=== PATIENT | male | born 1965 | race Hispanic/Latino ===

== ENCOUNTER 2018-09-04 06:26 | Day surgery (SDC) | payer OTHER ==
[2018-08-30 13:47] VITALS: BMI 24.1
[2018-09-04 07:03] LABS: BASO # 0.1 K/uL (0.0-0.2); BASO % 0.7 % (0.0-2.0); EOS # 0.1 K/uL (0.0-0.7); HEMOGLOBIN 14.7 g/dL (12.0-18.0); LYMPH # 2.3 K/uL (1.0-4.3); LYMPH % 29.6 % (20.0-40.0); MEAN CELL VOLUME 100.2 fl (80.0-94.0); MEAN CORPUSCULAR HEMOGLOBIN 34.7 pg (27.0-31.0); MEAN CORPUSCULAR HGB CONC 34.6 g/dL (33.0-37.0); MEAN PLATELET VOLUME 7.5 fl (7.2-11.7); MONO # 0.6 K/uL (0.0-0.8); MONO % 7.5 % (0.0-10.0); NEUT # 4.7 K/uL (1.8-7.0); NEUT % 61.2 % (50.0-75.0); NRBC % 0.1 % (0.0-0.0); RBC 4.24 Mil/uL (4.40-5.90); RED CELL DISTRIBUTION WIDTH 13.4 % (11.5-14.5); WHITE BLOOD COUNT 7.7 K/uL (4.8-10.8)
--- NOTE | 2018-09-04 07:11 | CP.PCM.HP ---
History of Present Illness - History of Present Illness History of Present Illness: 52 y/o male with PMH of HTN, GERD, and carpal tunnel was seen and evaluated in Same day Surgery for elective Right Total Hip Replacement Surgery today with Dr. Ovalles. Patient reports his hip pain has been present for the past 1 month, it is exacerbated by walking and activity and alleviated by rest. Patient denies any trauma or injury. Patient failed out-patient therapy, and now requires a total hip replacement. Patient reports he does not workout, however, states he walks daily. Patient lives in a home with stairs. Patient does not use a cane or walker for ambulation. Patient denies shortness of breath at rest or with exertion. Patient denies fever, nausea, vomiting, shortness of breath, abdominal pain, dysuria, polyuria or chest pain at this time. Patient's NPO status was confirmed. Patient's present at bedside. Allergies: Penicillins Medication: Amlodipine, Losartan, Nexium, HCTZ PMH: as mentioned PSH: Left Knee Surgery [address] Ovalles, lump removal from vocal chords many years ago Social: admits to 1 ppd and wine daily, denies illicit drug use METs score atleast 4 Vitals: Temp 97.8, BP 145/83, O2 98%, PMD: Dr. Frazier Patient medical and cardiac clearance noted in chart EKG- NSR, no evidence of acute ischemia or infarct CXR- no acute pathology All labs seen in chart, within normal limits Present on Admission - Present on Admission Any Indicators Present on Admission: No Review of Systems - Review of Systems All systems: reviewed and no additional remarkable complaints except Review of Systems: as per HPI Past Patient History - Past Medical History & Family History Past Medical History?: Yes - CARDIAC Hx Cardiac Disorders: Yes Hx Hypertension: Yes - PULMONARY Hx Respiratory Disorders: Yes - NEUROLOGICAL Hx Neurological Disorder: Yes - HEENT Hx HEENT Problems: Yes Other/Comment: Astigmatism - RENAL Hx Chronic Kidney Disease: No - ENDOCRINE/METABOLIC Hx Endocrine Disorders: No - HEMATOLOGICAL/ONCOLOGICAL Hx Blood Disorders: No - INTEGUMENTARY Hx Dermatological Problems: No - MUSCULOSKELETAL/RHEUMATOLOGICAL Hx Musculoskeletal Disorders: Yes Hx Arthritis: Yes - GASTROINTESTINAL Hx Gastrointestinal Disorders: No - GENITOURINARY/GYNECOLOGICAL Hx Genitourinary Disorders: No - PSYCHIATRIC Hx Psychophysiologic Disorder: No - SURGICAL HISTORY Hx Surgeries: Yes Hx Arthroscopy: Yes (Left knee 2013) Other/Comment: Lump removed from vocal cord 30 years ago - ANESTHESIA Hx Anesthesia: Yes Hx Anesthesia Reactions: No Hx Malignant Hyperthermia: No Has any member of the family had a problem w/ anesthesia?: No Meds Allergies/Adverse Reactions: Allergies Allergy/AdvReac Type Severity Reaction Status Date / Time Penicillins Allergy Severe ANAPHYLAXIS Verified 09/04/18 06:41 Physical Exam - Constitutional Appears: Well, Non-toxic, No Acute Distress - Head Exam Head Exam: ATRAUMATIC, NORMOCEPHALIC - Eye Exam Eye Exam: Normal appearance, PERRL - ENT Exam ENT Exam: Mucous Membranes Moist, Normal Exam - Respiratory Exam Respiratory Exam: Clear to Auscultation Bilateral, NORMAL BREATHING PATTERN. absent: Rales, Rhonchi, Wheezes - Cardiovascular Exam Cardiovascular Exam: REGULAR RHYTHM, +S1, +S2 - GI/Abdominal Exam GI & Abdominal Exam: Normal Bowel Sounds, Soft. absent: Distended, Firm, Guarding - Extremities Exam Additional comments: Right hip painful range of motion - Back Exam Back exam: absent: CVA tenderness (L), CVA tenderness (R) - Neurological Exam Neurological exam: Alert, Oriented x3 - Psychiatric Exam Psychiatric exam: Normal Affect, Normal Mood - Skin Skin Exam: Normal Color Results - Labs Result Diagrams: 09/04/18 06:35 Labs: Laboratory Results - last 24 hr 09/04/18 06:35 Crossmatch See Detail BBK History Checked No verified bt Assessment & Plan - Assessment and Plan (Free Text) Assessment: 52 y/o male patient seen and evaluated in [facility] for Right Hip replacement today with Dr. Saha Plan: Elective Total RIGHT hip replacement - medical clearance in chart - Pain management - OT/PT - F/U CBC/BMP - F/U Urine Culture - Abx as per Orthopedics - Ortho on consult HTN - asymptomatic, chronic - continue home medication GERD - asymptomatic, chronic - continue home medications DVT Prophylaxis - Lovenox 40 - Date & Time Date: 09/04/18 Time: 08:51
--- NOTE | 2018-09-04 07:13 | CP.PCM.CON ---
History of Present Illness - History of Present Illness History of Present Illness: Orthopedic Consult: Dr. Ovalles Patient is a 52 y/o male who presents for elective right total hip arthroplasty. The patient has had chronic hip pain which has been resistant to conservative management. The pain has negatively affected his daily activities, especially walking and stair climbing. He denies any cardiac procedures or thromboembolic events in the past. He currently denies numbness/tingling to LE, as well as CP/SOB/N/V/D/fever/dysuria/melena. He does not ambulate with an assistive aid regularly. PMH:HTN, GERD PSH: L knee arthroscopy, R wrist carpal tunnel release, vocal cord lumpectomy SH: tobacco 30 ppd, + ETOH allergy: PCN (anaphylaxis) Review of Systems - Review of Systems All systems: reviewed and no additional remarkable complaints except Review of Systems: as per HPI Past Patient History - Past Medical History & Family History Past Medical History?: Yes Past Family History: Reviewed and not pertinent - Past Social History Smoking Status: Heavy Smoker > 10 Cigarettes Daily Alcohol: Occasional Drugs: Denies - CARDIAC Hx Cardiac Disorders: Yes Hx Hypertension: Yes - PULMONARY Hx Respiratory Disorders: Yes - NEUROLOGICAL Hx Neurological Disorder: Yes - HEENT Hx HEENT Problems: Yes Other/Comment: Astigmatism - RENAL Hx Chronic Kidney Disease: No - ENDOCRINE/METABOLIC Hx Endocrine Disorders: No - HEMATOLOGICAL/ONCOLOGICAL Hx Blood Disorders: No - INTEGUMENTARY Hx Dermatological Problems: No - MUSCULOSKELETAL/RHEUMATOLOGICAL Hx Musculoskeletal Disorders: Yes Hx Arthritis: Yes - GASTROINTESTINAL Hx Gastrointestinal Disorders: No - GENITOURINARY/GYNECOLOGICAL Hx Genitourinary Disorders: No - PSYCHIATRIC Hx Psychophysiologic Disorder: No - SURGICAL HISTORY Hx Surgeries: Yes Hx Arthroscopy: Yes (Left knee 2013) Other/Comment: Lump removed from vocal cord 30 years ago - ANESTHESIA Hx Anesthesia: Yes Hx Anesthesia Reactions: No Hx Malignant Hyperthermia: No Has any member of the family had a problem w/ anesthesia?: No Meds Allergies/Adverse Reactions: Allergies Allergy/AdvReac Type Severity Reaction Status Date / Time Penicillins Allergy Severe ANAPHYLAXIS Verified 09/04/18 06:41 - Medications Medications: as per Med Rec Physical Exam - Constitutional Appears: Well, No Acute Distress - Head Exam Head Exam: ATRAUMATIC, NORMOCEPHALIC - Eye Exam Eye Exam: EOMI, Normal appearance, PERRL - ENT Exam ENT Exam: Mucous Membranes Moist - Neck Exam Neck exam: Positive for: Normal Inspection - Respiratory Exam Respiratory Exam: NORMAL BREATHING PATTERN - Cardiovascular Exam Cardiovascular Exam: +S1, +S2 - GI/Abdominal Exam GI & Abdominal Exam: Soft. absent: Tenderness - Extremities Exam Additional comments: R hip: no swelling, no masses, no lesions, no erythema tenderness to groin/lateral hip sensation intact SP/DP/TN motor intact EHL/FHL/TA/G DP/PT pulses intact comps soft NT - Neurological Exam Neurological exam: Alert, Oriented x3 - Psychiatric Exam Psychiatric exam: Normal Affect, Normal Mood - Skin Skin Exam: Normal Color, Warm Results - Labs Result Diagrams: 09/04/18 06:35 Labs: Laboratory Results - last 24 hr 09/04/18 09/04/18 06:35 06:35 WBC 7.7 RBC 4.24 L Hgb 14.7 Hct 42.5 MCV 100.2 H MCH 34.7 H MCHC 34.6 RDW 13.4 Plt Count 326 MPV 7.5 Neut % (Auto) 61.2 Lymph % (Auto) 29.6 [place] % (Auto) 7.5 Eos % (Auto) 1.0 Baso % (Auto) 0.7 Neut # (Auto) 4.7 Lymph # (Auto) 2.3 [place] # (Auto) 0.6 Eos # (Auto) 0.1 Baso # (Auto) 0.1 Crossmatch See Detail BBK History Checked No verified bt Assessment & Plan (1) Osteoarthritis of right hip Assessment and Plan: -OR today for R NELDA -Risks/benefits/alternatives were explained to patient who understands and agrees to proceed with procedure -NPO -medical clearance in chart -plan for d/c to home today -above d/w Dr. Ovalles in agreement Status: Acute
[2018-09-04] MEDS ORDERED: Thrombin Topical 5,000 Int Units Spray Kit ONE (07:14)
[2018-09-04] MEDS ORDERED: Bacitracin Ointment 30 GM TUBE ONE (07:14)
[2018-09-04] MEDS ORDERED: Lactated Ringer's 1,000 ML IV ONE ×2 (07:18→09:30)
[2018-09-04] MEDS ORDERED: Tranexamic Acid 1,000 MG in Sodium Chloride 0.9% 100 ML IVPB SCH (07:45)
[2018-09-04] MEDS ORDERED: Sodium Chloride 0.9% 1,000 ML IV ONE (07:50)
[2018-09-04] MEDS ORDERED: Midazolam 2 MG/2 ML VIAL ONE (07:59)
[2018-09-04] MEDS ORDERED: Succinylcholine Chloride 20 mg/ml Syr (5 ml) IV ONE (08:01)
[2018-09-04] MEDS ORDERED: Etomidate 20 mg/10ml Inj IV ONE (08:01)
[2018-09-04] MEDS ORDERED: Rocuronium 10 mg/ml (5 ml) ONE ×2 (08:20→10:09)
[2018-09-04] MEDS ORDERED: Phenylephrine 10 mg/ml Inj ONE (08:33)
[2018-09-04] MEDS ORDERED: EPINEPHrine 1 mg/ml (1:1000) Inj ONE (08:38)
[2018-09-04] MEDS ORDERED: Sevoflurane - Inhalation Anesthetic Liq (250 ml) ONE (08:42)
[2018-09-04] MEDS ORDERED: HEMOSTATIC MATRIX 10 ML DIS.NEEDLE TOP ONE (10:30)
[2018-09-04] MEDS ORDERED: Bupivacaine 0.5% Inj(30mL) ONE (10:36)
[2018-09-04] MEDS ORDERED: Neostigmine 1:1000 (1 mg/ml) Inj ONE (10:51)
[2018-09-04] MEDS ORDERED: Morphine 4 MG/ML VIAL IVP PRN (11:23)
[2018-09-04] MEDS ORDERED: Oxycodone/Acetaminophen 5/325 mg Tab PO PRN ×2 (11:23)
[2018-09-04] MEDS ORDERED: HYDROmorphone 0.5 mg/0.5 ml ISec IVP PRN (11:24)
[2018-09-04] MEDS ORDERED: Lactated Ringer's 1,000 ML IV SCH ×2 (11:30)
--- NOTE | 2018-09-04 11:59 | RAD ---
Date of service: 09/04/2018 PROCEDURE: Fluoroscopic assistance in excess of 1 hour. HISTORY: RIGHT HIP COMPARISON: None TECHNIQUE: Standard protocol for this study/examination. FINDINGS: Total fluoroscopic time (continuous mode) utilized during the procedure 11.1 seconds. IMPRESSION: Submitted images from the current procedure: 5.0
--- NOTE | 2018-09-04 12:56 | PCM.ANESB3 ---
Femoral Nerve Block - Femoral Nerve Block Date of Procedure: 09/04/18 Anesthesiologist: Tyson Pre-Procedure Diagnosis: Right hip OA Post-Procedure Diagnosis: Same Procedure Performed: Femoral Nerve Block Right - Procedure Femoral Nerve Block: The procedure was explained to the patient that it is for the post-operative pain management. Consent was obtained after a thorough discussion with the patient regarding the benefits and possible complications of local anesthetic block of the femoral nerve at the inguinal crease area. The patient was brought to the operating room and standard monitors were applied. Time-out was held with the circulating nurse to confirm the correct surgery and the appropriate block. Under general anesthesia, patient was placed in supine position with fully extended lower extremities and the ____right____ groin exposed. The femoral artery was then carefully palpated. The ultrasound transducer was then applied to this area in the transverse plane and the femoral nerve was visualized lateral to the femoral artery and underneath the fascia iliaca. After thorough identification, the inguinal crease area was prepped with Chloraprep. At this point, a #22 gauge Stimuplex 2-inch needle was inserted laterally to medial at 1/3 distance between the ASIS and the pubic symphysis at the level of the inguinal crease. The needle was inserted to the ultrasound transducer in- plane towards the femoral nerve in a [id number] direction. Needle advancement was performed carefully under direct ultrasound visualization. After negative aspiration, __2___cc of __0.2___% ___bupivicaine_w/ 1:200,000 epinephrine was injected and this was followed with _38 cc of ___0.2____ % __bupivicaine with 1:200,000 . Under ultrasound guidance the local anesthetics were observed spreading below fascia iliaca. The needle was removed intact and sterile dressing was applied. The patient had stable vital signs, was conscious and in no apparent distress. The patient tolerated the femoral nerve block well with stable vital signs and was prepared for subsequent emergence.
[2018-09-04 13:07] VITALS: RESP 18
--- NOTE | 2018-09-04 13:34 | RAD ---
PROCEDURE: Right Hip Radiographs. HISTORY: s/p R NELDA COMPARISON: None. FINDINGS: BONES: Satisfactory position/alignment of right NELDA components. JOINTS: Normal. SOFT TISSUES: Normal. OTHER FINDINGS: None. IMPRESSION: No significant or acute findings to account for/ related to the clinical presentation.
[2018-09-04] MEDS ORDERED: Clindamycin 600mg/50ml D5W 600 MG/50 ML VIAL IVPB SCH (15:15)
--- NOTE | 2018-09-04 15:26 | PCM.SURG1 ---
Surgeon's Initial Post Op Note - Surgeon's Notes Surgeon: Josr Senior Chemical Engineer: ALEX Enriquez/ Maria Teresa Russ PA- nbC Type of Anesthesia: General Endo, Spinal, Block Regional Anesthesia Administered By: DR murillo Pre-Operative Diagnosis: Posttraumatic O/A R HIP/ labral tear R hip Operative Findings: posttraumatic O/A R hip. tear labrum ( hip) Post-Operative Diagnosis: as above Operation Performed: R THR- ant approach. femoral neck oisteotomy. release iliopsoas tendon. autograft bone graft to acetabulum. computer navigatrion Specimen/Specimens Removed: femoral head/neck Estimated Blood Loss: EBL {In ML}: 100 Blood Products Given: N/A Drains Used: No Drains Post-Op Condition: Good Date of Surgery/Procedure: 09/04/18 Time of Surgery/Procedure: 09:00 (time in room 7:50/anaesthesia indcution time 7:50)
[2018-09-04 16:20] VITALS: O2SAT 98
[2018-09-04 17:07] VITALS: BP 115/76; PULSE 70; TEMP 97.2
--- NOTE | 2018-09-05 10:12 | OP ---
PROCEDURE DATE: 09/04/2018 PREOPERATIVE DIAGNOSIS: Severe osteoarthritis of the right hip. POSTOPERATIVE DIAGNOSES: 1. Posttraumatic osteoarthritis of the right hip. 2. Labral tear of the right hip. 3. Iliopsoas tendon contracture. OPERATION PERFORMED: 1. Right total hip replacement, anterior approach. 2. Arthrotomy, synovectomy, and debridement of glenoid labrum. 3. Femoral neck osteotomy, which is a separate procedure because the amount of planning preoperatively and intraoperatively to obtain the magnitude and the precise nature of the neck cut, release iliopsoas tendon, autograft bone graft to the acetabulum, computer navigation. SURGEON: Mike Ovalles MD PIN INSERTER REGULATOR: ALICE Quinonez, certified registered nursing assistant floor covering printer. SECOND NURSE QUALITY: Timoteo Gonzalez PA-C. SPECIMENS REMOVED: Femoral head and neck, synovium and the torn labrum. OPERATIVE FINDINGS: 1. Posttraumatic osteoarthritis of the right hip. 2. Tear of the hip labrum. 3. Iliopsoas contracture. ESTIMATED BLOOD LOSS: Approximately 100 mL. BLOOD PRODUCTS GIVEN: None. DRAINS: No drains. POSTOPERATIVE CONDITION: Stable. The patient is discharged home same day surgery. TIME OF SURGERY: Time in the room 07:50, incision time 9 o'clock. 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 He got to the point where the patient could not perform his occupation and walk the job. The patient underwent conservative management consisting of activity modification, anti-inflammatory medication therapy. MRI examination was accomplished which revealed the aforementioned pathology as described in the initial postop note. OPERATIVE PROCEDURE: Pros, cons, risks, and benefits of replacement arthroplasty were discussed. The alternatives including intra-articular injection arthroscopy, benign neglect, later surgery were discussed. The patient can no longer withstand the discomfort and wishes definitive solution which was replacement arthroplasty. 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 Possibility of mechanical failure, infection, thromboembolic disease, secondary or tertiary surgery was discussed. The patient can no longer withstand the discomfort. After having obtained informed consent in the above fashion, after the satisfactory induction of general and regional anesthesia by Dr. Mehta, after having identified side, site and procedure and the critical pause/time-out, the patient identified as Pola Bolton, and he was placed in the supine position for anterior approach surgery [place] [facility] [place]. The right lower extremity was prepped and draped in the usual fashion for lower extremity surgery. Under the surgeon's direction, the fluoroscope was positioned, the video images were generated, therapeutic decisions were made therefrom. Computer navigation, "Intellijoint" application of the passive robotic/computer navigation was employed, and at this point in time, an incision was described after having identified and marked topographical anatomy of the hip. An incision was described one fingerbreadth distal to the ASIS superficial to the tensor fascia femoris muscle approximately 4 inches in extent. The skin incision was carried down through the skin, subcutaneous tissue after having sterilely prepped and draped and after having performed the intraoperative planning for the femoral neck osteotomy on the basis of intraoperative x-rays. The tensor fascia femoris muscle was taken down from the investing fascia. At this point in time, the modified Leonel Medacta retractor was placed. The posterior margin of the rectus femoris was identified and carefully freed. The retractor was placed deeper superficial to the hip. The fascia was divided, and at this point in time the anterior femoral circumflex branch of the lateral femoral circumflex vessels were identified. These were controlled with suture ligature. Attention was now turned to the fat superficial of the capsule, which was removed. An incision was described from the lateral aspect of the acetabulum to the medial border of the iliocapsularis muscle. This was taken down in the area of the intertrochanteric line and the capsule was elevated. The capsule was divided with a cut superiorly and that was debrided. At this point in time, the capsular flap was brought all the way back laterally, taking great care to avoid injury to the intertrochanteric line. Packing was accomplished, the Medacta Hohmann retractors were applied, and the incision was accomplished at the margin of the saddle approximately 1.5 cm above the lesser trochanter. Osteotomy having been accomplished, the two-thirds of traction were applied with external rotation. The 1/2-inch curved osteotome was placed into the femoral cut femoral neck. The corkscrew was placed and the head was removed. At this point in time, there was found to be evidence of glenoid labral tear. Arthrotomy and excision of the glenoid and labral tear was accomplished at this point in time. Also at this point in time, the pulvinar and synovitis were controlled with the Aquamantys and the pulvinar was removed. At this point in time, attention was turned to the anterior-superior iliac spine and computer navigation commenced. Two stab wounds were employed and the pedestal for the optical accelerometer camera were applied. The screws were introduced, the optical accelerator camera was placed. At this point in time, the anterior pelvic plane was registered. The left ASIS and the right ASIS were registered for the anterior pelvic plane. This having been accomplished, sequential reaming was carried out to 52 mm in approximately 40 degrees of abduction and 18 to 20 degrees of anteversion. Reaming having been accomplished, reamings were denuded of articular cartilage for bone grafting. Autograft bone grafting was accomplished. The number 52-mm Medacta cup was impacted at approximately 41 degrees of abduction and 18 degrees of anteversion. The position of the cup was found to be excellent. The shell was found to be well fixed. At this point in time, attention was turned to the femur. With external rotation of the femur, iliopsoas tendon was identified. The iliopsoas tendon was released, there was found to be a capsular contracture. Iliopsoas tendon was released; and using the Aquamantys, hemostasis was controlled. The iliofemoral margin of the greater trochanter, the so-called watershed area was identified and was released. This having been accomplished, further rotation of the femur was accomplished and hyperextension of the femur is now accomplished. The *------* retractors were placed. The bridge of bone between the neck and the trochanter were removed with the box chisel. The bur was used to find the canal. The rat-tooth rasp was used to find the canal. At this point in time, sequential broaching was carried out to a #3 femoral component with the -3.5 head neck assembly and the 52 mm outer bearing. The hip was reduced and found to be stable in all planes. Iliopsoas tendon having been released, hemostasis having been controlled, the femur was again exposed, the Medacta collared #3 femoral stem was introduced with the -3.5 ceramic head having been affixed to the 52 mm polyethylene outer bearing. The construct was reduced. The wound was thoroughly irrigated. Hemostasis was controlled with the Aquamantys. This having been accomplished, it should be noted that autograft bone grafting had been accomplished to the acetabulum prior to impaction of the cup. Computer navigation having been accomplished for positioning of the leg lengths and the cup position, the leg lengths were found to be equal. The cup position was found to be equal as well. There was minimal loss of blood, probably 75 to 100 mL. Hemostasis having been controlled, FloSeal was employed in the joint as well as a hemostatic agent. Closures with 0 Quill, followed by 0 Vicryl, 2-0 Vicryl and 2-0 Quill plastic closure, interrupted 4-0 nylon, Vicryl, and Dermabond. Compression dressing was applied. Postoperative x-rays revealed excellent position of the construct with leg-length inequality. The patient was discharged from hospital same day surgery. Mike Ovalles MD
== END 2018-09-04 16:30 | disposition home or self-care (01) ==
LOC: H.OPSURG 06:26
PROVIDERS: ATTEND Orthopaedic Surgery
DX: M16.11 Unilateral primary osteoarthritis, right hip (principal); K21.9 Gastro-esophageal reflux disease without esophagitis; I10 Essential (primary) hypertension; F17.210 Nicotine dependence, cigarettes, uncomplicated; G89.29 Other chronic pain; Z88.0 Allergy status to penicillin
CPT/HCPCS: 27130; 36415; 73501; 85025; 86850; 86900; 86920; 88304; 97162; 97165; 97530; 97535; C1776; G8978; G8979; G8980; G8987; G8988; G8989; J0131; J0171; J2001; J2250; J2370; J2710; J3010; J7030; J7120

== ENCOUNTER 2018-10-11 07:26 | Day surgery (SDC) | payer OTHER ==
[2018-10-10 17:21] VITALS: BMI 25.0
[2018-10-11] MEDS ORDERED: Propofol 10 mg/ml Inj (20 ML) ONE (07:38)
[2018-10-11] MEDS ORDERED: Midazolam 2 MG/2 ML VIAL ONE (07:38)
[2018-10-11] MEDS ORDERED: Succinylcholine Chloride 20 mg/ml Syr (5 ml) IV ONE (07:39)
[2018-10-11] MEDS ORDERED: Rocuronium 10 mg/ml (5 ml) ONE (07:39)
[2018-10-11] MEDS ORDERED: Ropivacaine 0.5% 30ML IV ONE (07:45)
[2018-10-11 07:52] VITALS: RESP 18
--- NOTE | 2018-10-11 08:09 | CP.SDSHP ---
Same Day Surgery H & P - History Proposed Procedure: Left wrist carpal tunnel release Pre-Op Diagnosis: Left wrist carpal tunnel syndrome - Previous Medical/Surgical History Cardiac: Hypertension Misc: Other (GERD) Previous Surgical History: R NELDA, L knee arthroscopy, R wrist carpal tunnel release, vocal cord lumpectomy - Allergies Allergies: Allergies Penicillins Allergy (Severe, Verified 10/11/18 08:05) ANAPHYLAXIS - Current Medications Current Medications: as per med rec - Physical Exam General Appearance: NAD Vital Signs: Vital Signs 10/11/18 10/11/18 07:51 07:55 Temperature 97.6 F Pulse Rate 95 H 95 H Respiratory 18 Rate Blood Pressure 127/82 O2 Sat by Pulse 99 Oximetry Mental Status: Alert & Oriented x3 Neuro: WNL Heart: WNL Lungs: WNL GI: WNL Social History: Smoking - {Optional Preform as Required} Abdomen: WNL Integument: WNL Ortho: Other (Left hand: diminished sensation to MN distribution, diminished learning program manager strength, no lesion, 2 sec cap refill all fingers) - Impression Impression: Patient is a 52 y/o male who presents for elective L wrist carpal tunnel release following failed conservative management for many years. Risks /benefits/alternatives were explained to patient who understands and agrees to proceed with above procedure. Pt. Evaluated Today:Candidate for Anesthesia & Procedure: Yes - Date & Time Date: 10/11/18 Time: 07:30 Short Stay Discharge - Short Stay Discharge Admitting Diagnosis/Reason for Visit: G56.00/ M79.642/ M25.641/ Disposition: HOME/ ROUTINE Medications: oxyCODONE/Acetaminophen [Percocet 5/325 mg Tab] 1 ea PO Q4 PRN #20 tab PRN Reason: Pain, Severe (8-10) Referrals: Braulio Frazier MD [Primary Care Provider] -
[2018-10-11] MEDS ORDERED: Lactated Ringer's 1,000 ML IV ONE (08:25)
[2018-10-11 09:08] LABS: BASO # 0.1 K/uL (0.0-0.2); BASO % 0.9 % (0.0-2.0); EOS # 0.2 K/uL (0.0-0.7); EOS % 2.3 % (0.0-4.0); HEMOGLOBIN 12.8 g/dL (12.0-18.0); LYMPH # 1.9 K/uL (1.0-4.3); LYMPH % 25.6 % (20.0-40.0); MEAN CELL VOLUME 97.7 fl (80.0-94.0); MEAN CORPUSCULAR HEMOGLOBIN 33.4 pg (27.0-31.0); MEAN CORPUSCULAR HGB CONC 34.2 g/dL (33.0-37.0); MEAN PLATELET VOLUME 7.7 fl (7.2-11.7); MONO # 0.5 K/uL (0.0-0.8); MONO % 7.1 % (0.0-10.0); NEUT # 4.9 K/uL (1.8-7.0); NEUT % 64.1 % (50.0-75.0); NRBC % 0.2 % (0.0-0.0); RBC 3.85 Mil/uL (4.40-5.90); RED CELL DISTRIBUTION WIDTH 13.9 % (11.5-14.5); WHITE BLOOD COUNT 7.6 K/uL (4.8-10.8)
[2018-10-11] MEDS ORDERED: Bupivacaine 0.5% Inj(30mL) ONE (09:13)
[2018-10-11] MEDS ORDERED: Lidocaine 2% MPF (5 ml) Inj ONE (09:13)
[2018-10-11] MEDS ORDERED: MethylPREDNISolone Depo 40 mg/ml Inj ONE (09:13)
[2018-10-11] MEDS ORDERED: Bacitracin Ointment 30 GM TUBE ONE ×2 (09:14)
[2018-10-11 09:22] LABS: PROTHROMBIN TIME 11.4 Seconds (9.8-13.1)
[2018-10-11 09:25] LABS: PARTIAL THROMBOPLASTIN TIME 29.8 Seconds (25.6-37.1)
[2018-10-11 09:29] LABS: BLOOD UREA NITROGEN 10 mg/dl (9-20); CALCIUM 9.4 mg/dL (8.4-10.2); GFR NON-AFRICAN AMERICAN > 60
--- NOTE | 2018-10-11 09:53 | CARD ---
APPROVED REPORT Date of service: 10/11/2018 EKG Measurement Heart [id number] <Conclusion> Normal sinus rhythm Normal ECG
[2018-10-11] MEDS ORDERED: Dexamethasone 4 mg/1 ml ONE ×2 (10:28→11:12)
[2018-10-11] MEDS ORDERED: Sodium Chloride 0.9% 10 ML IV ONE (10:52)
[2018-10-11] MEDS ORDERED: ePHEDrine 50 mg/ml Inj ONE (10:52)
[2018-10-11] MEDS ORDERED: Dexamethasone 4 mg/1 ml IM ONE (11:30)
[2018-10-11] MEDS ORDERED: Neostigmine 1:1000 (1 mg/ml) Inj ONE (11:34)
[2018-10-11] MEDS ORDERED: Oxycodone/Acetaminophen 5/325 mg Tab PO PRN ×2 (11:42)
[2018-10-11] MEDS ORDERED: HYDROmorphone 0.5 mg/0.5 ml ISec IVP PRN (11:54)
[2018-10-11] MEDS ORDERED: Dexamethasone 4 mg/1 ml IVP PRN (11:54)
[2018-10-11] MEDS: Lactated Ringer's 1,000 ML IV SCH ×2 (12:25→12:45)
[2018-10-11 12:57] VITALS: O2SAT 99
[2018-10-11 13:40] VITALS: BP 128/78; PULSE 78; TEMP 97.6
--- NOTE | 2018-10-11 14:23 | PCM.SURG1 ---
Surgeon's Initial Post Op Note - Surgeon's Notes Surgeon: Josr Theater Technician: ALEX Gunn Type of Anesthesia: General Endo Anesthesia Administered By: Roberth Cash Pre-Operative Diagnosis: Carpal tunnel syndrome L wrist. Cervical readiculopathy Operative Findings: carpal tunnel syndrmoe. compression median nerve. flexor tenosynovectomy Post-Operative Diagnosis: as above Operation Performed: Release carpal tunnel L wrist. partial flexor tenosynovectomy. partial median neurolysisi. applx volar splint Specimen/Specimens Removed: synovium/epineurium Estimated Blood Loss: EBL {In ML}: 5 Blood Products Given: N/A Drains Used: No Drains Post-Op Condition: Fair Date of Surgery/Procedure: 10/11/18 Time of Surgery/Procedure: 11:00 (time in room/anaesthesia indcution time 1015)
--- NOTE | 2018-10-13 13:58 | OP ---
PROCEDURE DATE: 10/11/2018 PREOPERATIVE DIAGNOSES: Carpal tunnel syndrome, left wrist. The patient also has evidence of cervical radiculopathy and possible double crush syndrome. POSTOPERATIVE DIAGNOSES: Carpal tunnel syndrome, left wrist, with compression of the median nerve and epineurial inflammation. OPERATIVE FINDINGS: 1. Carpal tunnel syndrome, left wrist. 2. Compression of median nerve. 3. Flexor tenosynovitis. 4. Inflammation of the epineurium. SPECIMENS REMOVED: Synovium, epineurium. OPERATIVE PROCEDURES: 1. Release of carpal tunnel, left wrist. 2. Partial median neurolysis. 3. Partial flexor tenosynovectomy. 4. Application of volar splint. 5. Intra-articular injection. SURGEON: Mike Ovalles MD AUTOMOTIVE CENTER MANAGER: Krystal Davidson, Certified Registered Nursing Gear Nicker. 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 The patient now presents with pain in the area of the wrist, positive signs and symptoms of carpal tunnel, positive Durkan sign, decreased sensation from the first three fingers of the hand, positive Tinel's. The patient refuses EMG examination and wishes release of transverse carpal ligament. DESCRIPTION OF PROCEDURE: After having obtained informed consent, after having identified side, site and procedure and a critical pause/time-out, and after the satisfactory induction of the anesthetic, the patient identified as Pola Bolton in the supine position with all bony prominences well padded, the left upper extremity was prepped and free draped in the usual fashion for upper extremity surgery. The tourniquet had been applied but was not yet inflated. After exsanguinating the limb using a 6-inch Esmarch bandage, the tourniquet which had been applied was inflated to 250 mmHg. This having been accomplished, an incision was described in the median palmar crease, deviating radially at the distal crease and deviating back ulnarly at the proximal crease. The skin incision was carried down through the skin and subcutaneous tissue. The transverse carpal ligament was identified. This having been accomplished, the flap was raised. Great care was taken to avoid injury to the superficial sensory branch of the median nerve. The palmar aponeurosis was divided. The underlying transverse carpal ligament was identified. The transverse carpal ligament was completely released. This having been accomplished, the underlying median nerve was found to be compressed. A partial median neurolysis was accomplished as was a partial flexor tenosynovectomy. The neurolysis was accomplished under direct vision under eyeglass magnification control 2.0. Great care was taken to avoid injury to the digital branches of the median nerve. Having performed a neurolysis, attention was turned to the tenosynovium. A flexor tenosynovectomy was accomplished, sent for biopsy. The wound was thoroughly irrigated. Closures in layers with interrupted Vicryl. The entire extent of the transverse carpal ligament to the distal aspect of the forearm was released. Closures in layers with interrupted Vicryl and nylon. Intra-articular injection was offered of Marcaine and Decadron. Charlie Lay compression dressing and volar splint applied. Mike Ovalles MD
== END 2018-10-11 13:40 | disposition home or self-care (01) ==
LOC: H.OPSURG 07:26
PROVIDERS: ATTEND Orthopaedic Surgery
DX: G56.02 Carpal tunnel syndrome, left upper limb (principal); I10 Essential (primary) hypertension; K21.9 Gastro-esophageal reflux disease without esophagitis; M54.12 Radiculopathy, cervical region; Z88.0 Allergy status to penicillin
CPT/HCPCS: 25115; 29125; 36415; 64721; 80048; 85025; 85610; 85730; 88305; 93005; J1030; J1100; J2001; J2250; J2405; J2704; J2710; J3010; J7030; J7120

== ENCOUNTER 2019-01-24 06:22 | Day surgery (SDC) | payer OTHER ==
[2019-01-24 06:39] VITALS: BMI 23.7
[2019-01-24] MEDS ORDERED: Lactated Ringer's 1,000 ML IV ONE ×2 (07:09→09:31)
[2019-01-24] MEDS ORDERED: Sevoflurane - Inhalation Anesthetic Liq (250 ml) ONE (07:11)
[2019-01-24] MEDS ORDERED: Propofol 10 mg/ml Inj (20 ML) ONE ×2 (07:13→10:11)
[2019-01-24] MEDS ORDERED: Lidocaine 4% (Laryng-O-Jet) Kit MM ONE (07:14)
[2019-01-24] MEDS ORDERED: Succinylcholine 200 mg/10 ml Inj IV ONE (07:14)
[2019-01-24] MEDS ORDERED: Rocuronium 10 mg/ml (5 ml) ONE (07:14)
--- NOTE | 2019-01-24 07:14 | CP.PCM.PN ---
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 Patient counseled on the risks of addiction, physical or psychological dependence, and overdose associated with opioid drugs and the danger of taking opioid drugs with alcohol and other central nervous system depressants, and cautioned patient on storage and disposal. Objective - Vital Signs/Intake and Output Vital Signs (last 24 hours): Temp Pulse Resp BP Pulse Ox 98.1 F 92 H 18 112/73 97 01/24/19 06:52 01/24/19 06:52 01/24/19 06:52 01/24/19 06:52 01/24/19 06:52
[2019-01-24] MEDS ORDERED: Ropivacaine 0.5% 30ML IV ONE (07:20)
[2019-01-24] MEDS ORDERED: Lidocaine 1% Inj (20ml) ONE (08:01)
[2019-01-24] MEDS ORDERED: Bupivacaine 0.5% Inj(30mL) ONE (08:02)
[2019-01-24] MEDS ORDERED: Midazolam 2 MG/2 ML VIAL ONE (08:10)
--- NOTE | 2019-01-24 08:32 | PCM.ANESB2 ---
Popliteal Nerve Block - Popliteal Nerve Block Date of Procedure: 01/24/19 Anesthesiologist: Roberth Irby Pre-Procedure Diagnosis: Right great toe internal derangement Post-Procedure Diagnosis: Same Procedure Performed: Popliteal Nerve Block Right - Procedure Popliteal Nerve Block: This procedure was explained to the patient that it is for post-operative pain management. Consent was obtained after a thorough discussion with the patient regarding the benefits and possible complications of local anesthetic block of the sciatic nerve at the popliteal level. The patient was brought to the operating room and standard monitors are applied. Time-out was held with the circulating nurse to confirm the correct surgery and the appropriate block. After inducing general anesthesia with an LMA, patient's operative leg was gently raised and supported and the groove in between the biceps femoris and vastus lateralis muscles was carefully palpated. The skin approximately 8cm above the popliteal crease was then marked. The ultrasound transducer was then applied to the posterior thigh approximately 8cm above the popliteal crease in the transverse plane and the sciatic nerve before its division was visualized lateral to the popliteal artery and in between the bicep femoris and semimembranosus/semitendinosus muscles. After identification, the lateral por tion of the thigh was prepped with Chloraprep solution three times. At this point, a # 21 gauge Stimuplex insulated 4 inch needle was inserted into pre-marked area and advanced in a perpendicular direction. The needle was inserted above the ultrasound transducer in-plane towards the sciatic nerve in a [id number] direction. Needle advancement was performed carefully under direct ultrasound visualization. After repeated negative aspiration, __5___cc of _0.5__ % ___ropivacaine___ was injected and this was flowed with __15_ cc of __0.5____% ____ropivacaine__. Under ultrasound guidance the local anesthetics were observed surrounding sciatic nerve . The needle was removed intact and sterile dressing was applied. The patient tolerated the popliteal nerve block well with stable vital signs and was subsequently prepared for the surgery.
[2019-01-24] MEDS ORDERED: Lactated Ringer's 500 ML IV ONE (09:31)
[2019-01-24] MEDS ORDERED: ePHEDrine 50 mg/ml Inj ONE (09:38)
[2019-01-24] MEDS ORDERED: Lactated Ringer's 1,000 ML IV PRN (11:02)
[2019-01-24] MEDS ORDERED: HYDROmorphone 0.5 mg/0.5 ml ISec IVP PRN (11:02)
[2019-01-24] MEDS ORDERED: Oxycodone/Acetaminophen 5/325 mg Tab PO PRN ×2 (11:07)
[2019-01-24] MEDS ORDERED: Lactated Ringer's 1,000 ML IV SCH (11:15)
--- NOTE | 2019-01-24 11:45 | PCM.SURG1 ---
Surgeon's Initial Post Op Note - Surgeon's Notes Surgeon: Josr Fleet Assistant: DR Baeza,podiatry resident/ 2nd assist ALEX Enriquez Type of Anesthesia: General Endo Anesthesia Administered By: Dr Arnoldo Coleman Pre-Operative Diagnosis: Hallux valgus with metatarsus primus varus. 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 adductor tendon contracture. hallux rigidus Operative Findings: hallux valgus with metatarsus primus varus. primary osteoarthritis 1st MTP jopint R. addcutor contracture. hallux rigidus Post-Operative Diagnosis: as above Operation Performed: 1st metatarsal osteotomy with internal fixation. cheilectomy ist metatatarsal. release adductor tendon. exostectomy. capsular reconstruction ist metatarsal osteotomy. applx short leg walker Specimen/Specimens Removed: bone/cartilage/capsule Estimated Blood Loss: EBL {In ML}: 5 Blood Products Given: N/A Drains Used: No Drains Post-Op Condition: Fair Date of Surgery/Procedure: 01/24/19 Time of Surgery/Procedure: 09:10 (time in room 0815/anaesthesia induction time 08:15)
--- NOTE | 2019-01-24 12:27 | RAD ---
Date of service: 01/24/2019 PROCEDURE: Right Foot Radiographs. HISTORY: s/p great toe debridement and ORIF COMPARISON: None. TECHNIQUE: 3 views obtained. FINDINGS: BONES: No fracture or lytic lesion.-cystic degenerative arthrosis changes are however noted in 1st metatarsal head and 1st proximal phalanx. Partial medial 1st metatarsal head osseous resection/osteotomy changes with grossly intact single screw present here. JOINTS: Moderate 1st metatarsal-phalangeal joint arthrosis SOFT TISSUES: Normal. OTHER FINDINGS: No periosteal reaction or gross cortical destruction seen. Cortex is somewhat ill-defined in medial 1st metatarsal metaphysis region-however this is also at the level of the surgical changes in could be postsurgical. Continued clinical correlation and follow-up here is advised. IMPRESSION: Postsurgical changes 1st metatarsal head as above. Although the medial cortex here the 1st metatarsal head is somewhat [id number]-[id number] appears smooth and findings may relate to post surgical partial resection here clinical correlation is essential in terms of any obvious ulcers or erythema or cellulitis here. Soft tissues here show some mottled density but no gross gas-forming cellulitis suggested. No acute appearing periosteal reaction noted. Clinical correlation here is essential.
[2019-01-24 12:56] VITALS: TEMP 98.1
[2019-01-24 13:47] VITALS: BP 109/70; PULSE 72; RESP 16; O2SAT 98
--- NOTE | 2019-01-27 19:41 | OP ---
PROCEDURE DATE: 01/24/2019 TIME OF SURGERY: 09:10. Time in the room 08:15. Anesthesia induction time 08:15. PREOPERATIVE DIAGNOSES: 1. Hallux valgus with metatarsus primus varus, right foot. 2. 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 3. Hallux rigidus. 4. Adductor tendon contracture. POSTOPERATIVE DIAGNOSES: 1. Hallux valgus with metatarsus primus varus, right foot. 2. 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 3. Hallux rigidus. 4. Adductor tendon contracture. OPERATION PERFORMED: 1. First metatarsal osteotomy with internal fixation. 2. Cheilectomy, first metatarsal. 3. Release adductor tendon. 4. Exostectomy, first metatarsal. 5. Capsular reconstruction of the first metatarsophalangeal joint, application of short-leg walker. SURGEON: Mike Ovalles MD AGRISCIENCE TEACHER: Dr. Baeza, Podiatry resident. SECOND ACTIVATED SLUDGE ATTENDANT: Krystal Davidson, certified registered nursing processing assistant. TYPE OF ANESTHESIA: General endotracheal anesthesia. ANESTHESIA ADMINISTERED BY: Arnoldo Cedeno DO OPERATIVE FINDINGS: 1. Hallux valgus with metatarsus primus varus. 2. Hallux rigidus. 3. Primary osteoarthrosis of first metatarsophalangeal joint, right foot. 4. Adductor contracture. ESTIMATED BLOOD LOSS: Approximately 5 mL. BLOOD PRODUCTS: No blood products given. DRAINS: No drains. POSTOPERATIVE CONDITION: Stable. SPECIMENS REMOVED: Bone, cartilage, capsule. OPERATIVE INDICATIONS: Pola Bolton is a 53-year-old gentleman who presents with severe pain in the area of the first metatarsophalangeal joint. The patient has had significant discomfort, pain, and restricted range of motion. 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 The patient has had an exacerbation because of his job status. The patient failed conservative management consisting of intra-articular injection, activity modification, and therapy. The patient also had footwear modification. The patient's all conservative methods have failed. The patient presents at this point in time for corrective osteotomy, both to correct the deformity and to correct the weightbearing through the great toe and hopefully release some of the osteoarthritic change. The patient has restriction of terminal dorsiflexion with evidence of the hallux rigidus. OPERATION PERFORMED: After the satisfactory induction of general endotracheal anesthesia by Dr. Arnoldo Cedeno, after having identified the side, site and procedure and a critical pause/time-out, after the satisfactory induction of the anesthetic, after having obtained informed consent, after having identified the side, site and procedure and a critical pause/time-out, the patient identified as Pola Bolton in the supine position with all bony prominences well padded. The right lower extremity was prepped and free draped in the usual fashion for lower extremity surgery. The tourniquet had been applied, but was not yet inflated. After exsanguinating the limb using a 6-inch Esmarch bandage, the tourniquet which had been applied was inflated to 350 mmHg, a thigh tourniquet was employed. The incision was described on the dorsomedial aspect of the right foot centered on the metatarsophalangeal joint extending to the mid aspect of the first metatarsal into the lateral aspect of the mid aspect of the proximal phalanx. The operation was performed under 2.0 magnification eyeglasses. The skin incision was carried down through the skin and subcutaneous tissue. Stay sutures were placed. The very filmy layer superficial to the capsule was next carefully dissected using a tenotomy scissors. Great care was taken to avoid injury to the intermediate dorsal cutaneous nerve. This having been accomplished, the capsule was identified and with the metatarsophalangeal joint flexed, an incision was described on the dorsal lateral aspect of the first metatarsal extending across the joint taking great care not to score the articular surface to the lateral aspect of the proximal phalanx. The capsule was carefully elevated. The capsule was tagged using the 2-0 Vicryl suture and the capsule was developed both anterior and posteriorly. The plane between the skin and the capsule was developed and at this point in time great care was taken to dissect with a Hemostat to the adductor tendon insertion into the sesamoid tendons. Using #15 blade, the adductor tendon was carefully divided. The adductor tendon was divided and the contracture of the first metatarsal was therefore released. Adductor contracture having been released, attention was turned to the metatarsophalangeal joint. There was found to be evidence of a large dorsal osteophyte superiorly and superolaterally. This having been identified with the toe plantarflexed exposing the articular surface, there was found to be eburnation of the articular surface, but not completely. A dorsal cheilectomy was accomplished using the oscillating saw taking great care not to violate the anterior-superior cortex. This having been accomplished, the osteotomy was carried out fibularly as well, laterally as well to osteotomize that portion of the osteophyte as well. This having been accomplished, attention was now turned to the joint. The joint was carefully debrided. There was an excessive amount of synovitis. The sesamoids were freed up. The capsular release was carried out to the superior aspect, anterior aspect of the distal metatarsal and inferiorly. This having been accomplished, a modified L-osteotomy was accomplished at the bisection of the anterior aspect of the articular cartilage, the posterior aspect, and that is the center of the L. Using the oscillating saw, the L-osteotomy was accomplished. It was completed with a quarter-inch straight osteotome. This having been accomplished with the web press operator assistant putting traction on the metatarsophalangeal joint, the osteotomy was shifted and held with a K-wire. A minimal amount of exostosis will be removed so as to prevent a postoperative hallux varus. This having been accomplished, exostectomy was accomplished after the aforementioned cheilectomy had been accomplished and after the release of the adductor tendon. This having been accomplished, fixation of the osteotomy was accomplished with a 2.7 mm AO screw. Drilling was accomplished with a 2.7 screw, followed by 2.0, followed by sounding with the depth gauge and the appropriate sized screw was placed. Fixation was found to be acceptable. The K-wire was reduced. At this point in time, evaluation of the joint was accomplished, debridement of the proximal aspect of the distal phalanx was accomplished as well. There was found to be some evidence of chondrocalcinosis in the capsule as well and a partial synovectomy was accomplished excising the chondrocalcinosis which based on the patient's past medical history is probably gouty in origin. The metatarsal osteotomy having been accomplished, shifted and held with a lag screw, capsular reconstruction was accomplished by tensioning the capsule and to allow the great toe to go into rectus. The great toe was rectus, there was no evidence of overcorrection. There was no incidence of hallux varus. Closure of the capsular reconstruction was accomplished with 2-0 Vicryl suture. The wound was thoroughly irrigated. There was found to be no excessive tension on the extensor tendon, so a Z-plasty was not accomplished. Capsular reconstruction having been accomplished, cheilectomy having been accomplished, first osteotomy having been accomplished, adductor tendon release having been accomplished, debridement of the osteophytes at the base of the proximal phalanx having been accomplished, closures in layers with interrupted 2-0 Vicryl and Monocryl for skin. Steri-Strips were applied. Charlie Lay compression dressing and short leg walking boot were applied. Anesthesia blocks the foot prior to the patient having been awakened. The tourniquet had been deflated. Hemostasis was controlled. Mike Ovalles MD
--- NOTE | 2019-01-29 13:31 | RAD ---
Date of service: 01/24/2019 PROCEDURE: Fluoroscopy up to 1 hr. HISTORY: FLUORO COMPARISON: None TECHNIQUE: Total fluoroscopic time (continuous mode) utilized during the procedure 10.1 seconds. Total exam DLP: 0.18 (mGy). FINDINGS: Submitted images from the current procedure: 3.0 IMPRESSION: Less than 1 hr fluoroscopic assistance provided during performance of the procedure.
== END 2019-01-24 14:40 | disposition home or self-care (01) ==
LOC: H.OPSURG 06:22
PROVIDERS: ATTEND Orthopaedic Surgery
DX: M20.11 Hallux valgus (acquired), right foot (principal); M20.20 Hallux rigidus, unspecified foot; Q66.21 Congenital metatarsus primus varus; M19.071 Primary osteoarthritis, right ankle and foot; M11.271 Other chondrocalcinosis, right ankle and foot; M62.471 Contracture of muscle, right ankle and foot; M65.871 Other synovitis and tenosynovitis, right ankle and foot; I10 Essential (primary) hypertension; K21.9 Gastro-esophageal reflux disease without esophagitis
CPT/HCPCS: 27306; 28072; 28289; 28296; 73630; 88304; 88305; 97116; 97161; 97165; G8978; G8979; G8987; G8988; J2001; J2250; J2405; J2704; J2765; J3010; J7030; J7120